=== PATIENT | female | born 1950 | race Two or more races ===

== ENCOUNTER → 2025-01-03 | Outpatient (CLI) | payer MEDICARE, MEDICAID, SELFPAY ==
--- NOTE | 2025-01-03 09:36 | XR_ITS ---
Examination: PA lateral chest 2 views TECHNIQUE: Upright PA lateral chest 2 views Date and time: January 03, 2025 1002 hours INDICATIONS: Right-sided chest pain 3 days FINDINGS: Moderate hyperexpansion. Normal heart size. No pneumonia or pulmonary edema Moderate osteopenia IMPRESSION: Moderate hyperexpansion. No pneumonia or pulmonary edema
== END | disposition home or self-care (01) ==
LOC: CDIM 09:32
PROVIDERS: Referring Provider Obstetrics & Gynecology; Visit Provider Obstetrics & Gynecology
DX: R07.89 Other chest pain (principal)
CPT/HCPCS: 71046

== ENCOUNTER → 2025-03-23 | Outpatient (CLI) | payer OTHER, MEDICAID, SELFPAY ==
--- NOTE | 2025-03-23 08:45 | XR_ITS ---
Examination: Screening digital mammography, bilateral Computer aided detection 3-D breast Tomosynthesis, bilateral Date and time of exam: March 23, 2025 8:13 AM Indication: Screening Technique: Nonmagnified MLO, CC views of the breasts to been obtained, reconstructed from 3-D Tomosynthesis images. R2 computer aided detection program utilized for evaluation of suspicious masses and/or abnormal calcifications. 3-D Tomosynthesis images obtained. Findings: The breasts are heterogeneously dense, which may obscure small masses Numerous bilateral calcifications. 12 mm axillary mass with indistinct margins 12 mm focal asymmetry outer lower left breast anterior depth Impression: BI-RADS Category 0: Incomplete: Need additional imaging evaluation Recommend follow-up spot tomographic views of 12 mm focal asymmetry outer lower left breast Recommend follow-up spot tomographic views axillary portion left breast CC and MLO as well as bilateral breast sonography to complete the workup
== END | disposition home or self-care (01) ==
LOC: CDIM 08:06
PROVIDERS: PCP Obstetrics & Gynecology; Referring Provider Obstetrics & Gynecology; Visit Provider Obstetrics & Gynecology
DX: Z12.31 Encounter for screening mammogram for malignant neoplasm of breast (principal); N64.89 Other specified disorders of breast
CPT/HCPCS: 77063; 77067

== ENCOUNTER → 2025-04-06 | Outpatient (CLI) | payer OTHER, MEDICAID, SELFPAY ==
--- NOTE | 2025-04-06 09:12 | XR_ITS ---
Examination: Diagnostic digital mammography, unilateral, left Computer aided detection 3-D breast Tomosynthesis, unilateral Date and time of exam: April 06, 2025 0924 hours INDICATIONS: Mammogram March 23, 2025 12 mm focal asymmetry outer left breast CC view Technique: Nonmagnified MLO, CC views of the left breast have been obtained, reconstructed from 3-D Tomosynthesis images. R2 computer aided detection program utilized for evaluation of suspicious masses and/or abnormal calcifications. 3-D Tomosynthesis images obtained. Findings: The breast is heterogeneously dense, which may obscure small masses No suspicious masses noted on the spot compression views Impression: BI-RADS category 0: Incomplete: Need additional imaging evaluation Recommend bilateral breast sonography follow-up
== END | disposition home or self-care (01) ==
LOC: CDIM 09:08
PROVIDERS: Referring Provider Nurse Practitioner Family; Visit Provider Nurse Practitioner Family
DX: R92.8 Other abnormal and inconclusive findings on diagnostic imaging of breast (principal)
CPT/HCPCS: 77061; 77065; G0279

== ENCOUNTER 2025-05-22 16:08 | Emergency (ER) | payer OTHER, MEDICAID, SELFPAY ==
[2025-05-22 16:27] VITALS: BP 157/99; PULSE 91; RESP 20; TEMP 36.8; O2SAT 95
--- NOTE | 2025-05-22 16:28 | PD.EDRME ---
Rapid Medical Screening Exam RME Arrival date/time: This is a case of 75-year-old female who was sent here by Dr. Tyson for possible DVT on both lower extremities patient was complaining about lower extremity pain but no swelling persistence of the symptoms discharge consult to Dr. Alfaro and was sent here for ultrasound of the both lower extremities to ruled out DVT Chief Complaint: General Adult/Misc Complain Time Seen by Provider: 05/22/25 16:24 Vital signs: Vital Signs Temperature 98.3 F 05/22/25 16:27 Pulse Rate 91 05/22/25 16:27 Respiratory Rate 20 05/22/25 16:27 Blood Pressure 157/99 H 05/22/25 16:27 Pulse Oximetry (%) 95 05/22/25 16:27 Oxygen Delivery Method Room Air 05/22/25 16:27
[2025-05-22 17:21] LABS: Basophils # (Auto) 0.0 Thou/mm3 (0.0-0.2); Basophils % (Auto) 0 % (0-2.5); Eosinophils # (Auto) 0.0 Thou/mm3 (0.0-0.5); Eosinophils % (Auto) 1 % (0-10); Hematocrit 43.1 % (36.0-46.0); Hemoglobin 15.1 g/dL (12.0-16.0); Immature Granulocytes Auto 0.01 Thou/mm3 (0.00-0.00); Lymphocytes # (Auto) 1.8 Thou/mm3 (1.0-4.8); Lymphocytes % (Auto) 31 % (10-50); Mean Corpuscular HGB Conc 35.0 g/dl (31.0-37.0); Mean Corpuscular Hemoglobin 30.4 pg (25.0-35.0); Mean Corpuscular Volume 87 fL (80-100); Monocytes # (Auto) 0.4 Thou/mm3 (0.0-0.8); Monocytes % (Auto) 7 % (0-12); Neutrophils # (Auto) 3.4 Thou/mm3 (1.8-7.7); Neutrophils % (Auto) 60 % (37-80); Nucleated Red Blood Cell # 0.00 Thou/mm3 (0.00-0.00); Nucleated Red Blood Cell % 0 /100 WBC (0); Platelet Count 272 Thou/mm3 (140-440); RDW Standard Deviation 36.2 fL (36.4-46.3); Red Blood Count 4.97 Miln/mm3 (4.00-5.20); White Blood Count 5.7 Thou/mm3 (3.6-11.0)
[2025-05-22 17:36] LABS: Alanine Aminotransferase 12 U/L (10-49); Albumin, Serum 4.6 gm/dL (3.4-4.8); Albumin/Globulin Ratio 1.8 (1.2-2.2); Alkaline Phosphatase 70 U/L (46-116); Anion Gap 12 (7-16); Aspartate Amino Transferase 15 U/L (0-34); BUN/Creatinine Ratio 11 Ratio (12-20); Bilirubin,Total 0.7 mg/dL (0.3-1.2); Blood Urea Nitrogen 10 mg/dL (9-23); Calcium 10.3 mg/dL (8.3-10.6); Calcium (Corrected) 10.3 mg/dL (8.5-10.1); Carbon Dioxide 27.4 mMol/L (20.0-31.0); Chloride 102 mMol/L (98-107); Creatinine (Component) 0.9 mg/dL (0.6-1.3); Globulin 2.5 gm/dL (2.3-3.5); Glucose 263 mg/dL (74-106); Osmolality,Calculated 289 (275-295); Potassium 4.3 mMol/L (3.4-5.1); Sodium 141 mMol/L (136-145); Total Protein 7.1 gm/dL (5.7-8.2); eGFR > 60 See Note
--- NOTE | 2025-05-22 19:32 | PD.EDRME ---
Rapid Medical Screening Exam RME Arrival date/time: 05/22/25 16:08 This is a case of 75-year-old female who was sent here by Dr. Tyson for possible DVT on both lower extremities patient was complaining about lower extremity pain but no swelling persistence of the symptoms discharge consult to Dr. Alfaro and was sent here for ultrasound of the both lower extremities to ruled out DVT Chief Complaint: General Adult/Misc Complain Time Seen by Provider: 05/22/25 16:24 Vital signs: Vital Signs Temperature 98.3 F 05/22/25 16:27 Pulse Rate 91 05/22/25 16:27 Respiratory Rate 20 05/22/25 16:27 Blood Pressure 157/99 H 05/22/25 16:27 Pulse Oximetry (%) 95 05/22/25 16:27 Oxygen Delivery Method Room Air 05/22/25 16:27 RME Narrative: This is a case of 75-year-old female who was sent here by Dr. Tyson for possible DVT on both lower extremities patient was complaining about lower extremity pain but no swelling persistence of the symptoms discharge consult to Dr. Alfaro and was sent here for ultrasound of the both lower extremities to ruled out DVT
--- NOTE | 2025-05-22 20:35 | PC.NURSE ---
SEEN BY JEFE KRUGER
== END 2025-05-22 20:36 | disposition left against medical advice (07) ==
PROVIDERS: Nurse Practitioner Family; Emergency Provider Emergency Medicine; PCP Nurse Practitioner Family
DX: M79.662 Pain in left lower leg (principal); M79.661 Pain in right lower leg; Z53.29 Procedure and treatment not carried out because of patient's decision for other reasons
CPT/HCPCS: 36415; 80053; 85025; 99283

== ENCOUNTER → 2025-05-22 | Outpatient (CLI) | payer OTHER, MEDICAID, SELFPAY ==
--- NOTE | 2025-05-22 15:14 | XR_ITS ---
Examination: Venous duplex lower extremity sonogram, bilateral. Date and time of exam: May 22, 2025, 1529 hours INDICATIONS: Bilateral leg swelling and pain beginning 2 months ago Technique: Multiple sonographic images of the deep venous system have been obtained. B-mode/2-D grayscale imaging of vascular structures and Doppler spectral analysis (waveforms) and color performed Both legs are examined. Findings: Positive for nonocclusive thrombus involving the right popliteal right peroneal veins Positive for nonocclusive thrombus involving the left popliteal vein IMPRESSION: Positive for bilateral nonocclusive acute thrombus as above
== END | disposition home or self-care (01) ==
PROVIDERS: PCP Nurse Practitioner Family; Referring Provider Nurse Practitioner Family; Visit Provider Nurse Practitioner Family
DX: I82.433 Acute embolism and thrombosis of popliteal vein, bilateral (principal)
CPT/HCPCS: 93970

== ENCOUNTER → 2025-07-04 | Outpatient (CLI) | payer OTHER, MEDICAID, SELFPAY ==
[2025-07-04 10:03] LABS: Collection Type, Urine Clean Catch
[2025-07-04 11:10] LABS: Parathyroid Hormone Intact 29.6 pg/ml (18.5-88.0)
[2025-07-04 11:11] LABS: Bacteria,Urine Rare; Bilirubin,Urine Negative (Negative); Blood,Urine Trace (Negative); Color,Urine Lt-Yellow (Lt Yel-Yel); Creatinine MALB Rnd Ur 58 mg/dL (30-125); Glucose, Urine 4+ (Negative); Ketones,Urine 3+ (Negative); Leukocyte Esterase,Urine Positive (Negative); Microalbumin Creat Ratio 53 mg/gCrea (<30); Microalbumin, Random Urine 31 mg/L (0-300); Nitrite,Urine Positive (Negative); PH,Urine 6.0 (5.0-7.0); Protein,Urine Trace (Neg - Trace); RBC,Urine 22 /hpf (0-3); Specific Gravity,Urine 1.032 (1.001-1.035); Squamous Epithelial Cell,Urine 3 /hpf (0-5); Urobilinogen,Urine Negative mg/dL (0.0-1.0); WBC,Urine 156 /hpf (0-5)
[2025-07-04 11:12] LABS: Clarity,Urine Hazy (Clear/Hazy); Culture Indicated,Urine Yes
[2025-07-04 11:17] LABS: Basophils # (Auto) 0.0 Thou/mm3 (0.0-0.2); Basophils % (Auto) 1 % (0-2.5); Eosinophils # (Auto) 0.0 Thou/mm3 (0.0-0.5); Eosinophils % (Auto) 0 % (0-10); Ferritin 338 ng/mL (7.3-270.7); Folate 18.07 ng/mL (>5.38); Hematocrit 40.8 % (36.0-46.0); Hemoglobin 14.4 g/dL (12.0-16.0); Immature Granulocytes Auto 0.02 Thou/mm3 (0.00-0.00); Iron 114 mcg/dL (50-170); Lymphocytes # (Auto) 1.2 Thou/mm3 (1.0-4.8); Lymphocytes % (Auto) 24 % (10-50); Mean Corpuscular HGB Conc 35.3 g/dl (31.0-37.0); Mean Corpuscular Hemoglobin 30.9 pg (25.0-35.0); Mean Corpuscular Volume 88 fL (80-100); Monocytes # (Auto) 0.3 Thou/mm3 (0.0-0.8); Monocytes % (Auto) 7 % (0-12); Neutrophils # (Auto) 3.4 Thou/mm3 (1.8-7.7); Neutrophils % (Auto) 68 % (37-80); Nucleated Red Blood Cell # 0.00 Thou/mm3 (0.00-0.00); Nucleated Red Blood Cell % 0 /100 WBC (0); Percent Iron Saturation 40 % (20-55); Platelet Count 240 Thou/mm3 (140-440); RDW Standard Deviation 38.6 fL (36.4-46.3); Red Blood Count 4.66 Miln/mm3 (4.00-5.20); Total Iron Binding Capacity 281 mcg/dL (250-425); Unsaturated Iron Binding 167 (225-295); Vitamin B12 1157 pg/mL (211-911); Vitamin D 25 Hydroxy Total 31.8 ng/mL (7.3-40.2); White Blood Count 4.9 Thou/mm3 (3.6-11.0)
[2025-07-04 11:51] LABS: Alanine Aminotransferase 28 U/L (10-49); Albumin, Serum 4.8 gm/dL (3.4-4.8); Albumin/Globulin Ratio 2.8 (1.2-2.2); Alkaline Phosphatase 108 U/L (46-116); Anion Gap 14 (7-16); Aspartate Amino Transferase 18 U/L (0-34); BUN/Creatinine Ratio 19 Ratio (12-20); Bilirubin,Total 0.9 mg/dL (0.3-1.2); Blood Urea Nitrogen 15 mg/dL (9-23); Calcium 9.8 mg/dL (8.3-10.6); Calcium (Corrected) 9.8 mg/dL (8.5-10.1); Carbon Dioxide 23.8 mMol/L (20.0-31.0); Chloride 99 mMol/L (98-107); Creatinine (Component) 0.8 mg/dL (0.6-1.3); Globulin 1.7 gm/dL (2.3-3.5); Glucose 377 mg/dL (74-106); Magnesium 1.6 mg/dL (1.6-2.6); Osmolality,Calculated 289 (275-295); Phosphorous 3.3 mg/dL (2.4-5.1); Potassium 4.1 mMol/L (3.4-5.1); Sodium 137 mMol/L (136-145); Total Protein 6.5 gm/dL (5.7-8.2); Uric Acid 3.6 mg/dL (3.1-7.8); eGFR > 60 See Note
== END | disposition home or self-care (01) ==
PROVIDERS: Referring Provider Internal Medicine Nephrology; Visit Provider Internal Medicine Nephrology
DX: N18.32 Chronic kidney disease, stage 3b (principal); D63.8 Anemia in other chronic diseases classified elsewhere; E55.9 Vitamin D deficiency, unspecified; E21.3 Hyperparathyroidism, unspecified
CPT/HCPCS: 36415; 80053; 81001; 82043; 82306; 82570; 82607; 82728; 82746; 83540; 83550; 83735; 83970; 84100; 84550; 85025; 87077; 87086; 87186